=== PATIENT | female | born 1950 | race Caucasian/White ===

== ENCOUNTER → 2025-01-02 | Outpatient (REF) | payer MEDICARE, BC ==
[2025-01-02 15:14] LABS: CREATININE FOR GFR 1.02 MG/DL (0.55-1.30); GLOMERULAR FILTRATION RATE 57.0 (>39)
== END ==
LOC: M LABDRAWC 12:06
PROVIDERS: ATTEND Surgery Vascular Surgery
DX: I71.43 Infrarenal abdominal aortic aneurysm, without rupture (principal)

== ENCOUNTER → 2025-01-08 | Outpatient (CLI) | payer MEDICARE, BC ==
[~2025-01-08] MED LIST: ISOVUE-370 76% 100 ML VIAL As Ordered ONE
== END ==
LOC: EDUNIT# 10:30 → M RAD 10:47
PROVIDERS: ATTEND Physician Assistant
DX: I71.43 Infrarenal abdominal aortic aneurysm, without rupture (principal); N28.89 Other specified disorders of kidney and ureter
CPT/HCPCS: 74175; Q9967